=== PATIENT | male | born 1960 | race Caucasian/White ===

== ENCOUNTER 2017-07-26 10:21 | Inpatient (IN) | payer OTHER ==
[~2017-07-26] VITALS: Ht 175.3 cm; Wt 95.5 kg
[2017-07-26] MEDS ORDERED: TAMS0.4C32 PO (10:57)
[2017-07-26] MEDS ORDERED: ASPI-1182 PO (10:57)
[2017-07-26] MEDS ORDERED: ATOR40TA28 PO (10:57)
[2017-07-26] MEDS ORDERED: LURA40 PO (10:57)
[2017-07-26] MEDS ORDERED: OLAN10TA3 PO (10:57)
[2017-07-26] MEDS ORDERED: SERT100T12 PO (10:57)
[2017-07-26] MEDS ORDERED: TRAZ150 PO (10:57)
[2017-07-26] MEDS ORDERED: ATEN25TA PO (10:57)
[2017-07-26] MEDS ORDERED: VIST50 PO (10:57)
[2017-07-26] MEDS ORDERED: LISI-662 PO (10:57)
[2017-07-26] MEDS ORDERED: FINA5TAB41 PO (10:57)
[2017-07-26 11:31] LABS: BASOPHILS % (AUTO) 0.6 % (0.0-2.0); EOSINOPHILS % (AUTO) 0.3 % (1.0-6.0); HEMATOCRIT 40.2 % (41-53); HEMOGLOBIN 14.3 g/dL (13.5-17.5); LYMPHOCYTES # (AUTO) 1.4 K/uL (1.0-4.8); LYMPHOCYTES % (AUTO) 31.6 % (22.0-44.0); MEAN CORPUSCULAR HEMOGLOBIN 31.7 pg (26.0-34.0); MEAN CORPUSCULAR HGB CONC 35.6 G/dL (31.0-37.0); MEAN CORPUSCULAR VOLUME 89 fL (80-100); MONOCYTES # (AUTO) 0.3 K/uL (0.1-1.0); MONOCYTES % (AUTO) 7.4 % (2.0-9.0); NEUTROPHILS # (AUTO) 2.6 K/uL (1.8-7.7); NEUTROPHILS % (AUTO) 60.1 % (40.0-70.0); PLATELET COUNT (AUTO) 203 K/uL (150-450); RED BLOOD CELL COUNT(AUTO) 4.51 MIL/uL (4.50-5.90); RED CELL DISTRIBUTION WIDTH 12.1 % (11.5-14.5); WHITE BLOOD COUNT (AUTO) 4.4 K/uL (4.5-11.0)
[2017-07-26 11:41] LABS: ANION GAP 5 mmol/L (8-16); CALCIUM, TOTAL 8.8 mg/dL (8.8-10.5); CARBON DIOXIDE 31 mmol/L (22-29); CHLORIDE 102 mmol/L (98-107); CREATININE 0.91 mg/dL (0.60-1.30); GLOMERULAR FILTR. RATE CALC > 60 mL/min (>60); POTASSIUM 4.2 mmol/L (3.5-5.1); SODIUM SERUM 138 mmol/L (136-145); UREA NITROGEN, BLOOD 10 mg/dL (7-18)
[2017-07-26 11:45] LABS: INR 1.1 (0.9-1.1); PROTHROMBIN TIME 11.2 SEC (9.4-11.6)
[2017-07-26 11:59] LABS: B-TYPE NATRIURETIC PEPTIDE < 5 pg/mL (0-100)
[2017-07-26 12:06] LABS: ALANINE AMINOTRANSFERASE 41 U/L (12-78); ALBUMIN 3.8 g/dL (3.4-5.0); ASPARTATE AMINOTRANSFERASE 24 U/L (15-37); BILIRUBIN,TOTAL 0.4 mg/dL (0.1-1.0); CREATINE KINASE MB 2.2 ng/mL (0-5); CREATINE KINASE, TOTAL 139 U/L (39-308); TOTAL PROTEIN, SERUM 7.2 g/dL (6.4-8.2)
[2017-07-26] MEDS ORDERED: MORPHINE SULFATE 2 MG/ML SYRINGE IVP PRN (13:45)
[2017-07-26] MEDS ORDERED: ZOLPIDEM TARTRATE 10 MG TABLET PO PRN (13:45)
[2017-07-26] MEDS ORDERED: MAGNESIUM HYDROXIDE SUSPENSION 30 ML UDCUP PO PRN (13:45)
[2017-07-26] MEDS ORDERED: ONDANSETRON HCL 4 MG/2 ML VIAL IVP PRN (13:45)
[2017-07-26] MEDS ORDERED: HYDROCODONE/ACETAMINOPHEN 5-325 MG TABLET PO PRN (13:45)
[2017-07-26] MEDS ORDERED: IPRATROPIUM BROMIDE 0.5 MG/2.5 ML NEB SOLUTION NEB PRN (13:45)
[2017-07-26] MEDS ORDERED: ACETAMINOPHEN 325 MG TABLET PO PRN (13:45)
[2017-07-26] MEDS ORDERED: HydrOXYzine PAMOATE 50 MG CAPSULE PO PRN (14:00)
[2017-07-26 16:53] VITALS: BP 159/111
[2017-07-26 17:11] LABS: ADD UA MICROSCOPIC NO; APPEARANCE,URINE CLEAR (CLEAR); GLUCOSE, URINE (UA) NEGATIVE (NEGATIVE); KETONES,URINE NEGATIVE (NEGATIVE); LEUKOCYTE ESTERASE ,URINE NEGATIVE (NEGATIVE); OCCULT BLOOD,URINE NEGATIVE (NEGATIVE); PH,URINE 6.5 (5.0-8.0); PROTEIN,URINE NEGATIVE (NEGATIVE)
[2017-07-26] MEDS: NITROGLYCERIN 2% (1 GM=INCH) PACKET TP SCH (18:23)
[2017-07-26 18:40] VITALS: BP 130/91
[2017-07-26 19:34] VITALS: BP 117/66
[2017-07-26] MEDS: ATORVASTATIN CALCIUM 40 MG TABLET PO SCH (22:10)
[2017-07-26] MEDS: DOCUSATE SODIUM 100 MG CAPSULE PO SCH (22:10)
[2017-07-26] MEDS: TraZODone HCL 150 MG TABLET PO SCH (22:12)
[2017-07-26 23:57] VITALS: BP 112/64
[2017-07-27] VITALS (16 sets, daily range): BP systolic 105–139; BP diastolic 53–91
[2017-07-27] MEDS: NITROGLYCERIN 2% (1 GM=INCH) PACKET TP SCH ×4 (06:00→18:00)
[2017-07-27 06:29] LABS: CHOL/HDL RATIO 4.2 (4.2-7.3)
[2017-07-27] MEDS ORDERED: [UNRECOGNIZED DRUG - OTHER] PO SCH (08:00)
[2017-07-27] MEDS ORDERED: [UNRECOGNIZED DRUG - OTHER] PO SCH (08:00)
[2017-07-27] MEDS: LISINOPRIL 20 MG TABLET PO SCH (08:22)
[2017-07-27] MEDS: PANTOPRAZOLE SODIUM 40 MG/VIAL IVP SCH (08:22)
[2017-07-27] MEDS: ASPIRIN 81 MG CHEWABLE TABLET PO SCH (08:23)
[2017-07-27] MEDS: TAMSULOSIN HCL 0.4 MG CAPSULE PO SCH (08:23)
[2017-07-27] MEDS: FINASTERIDE 5 MG TABLET PO SCH (08:23)
[2017-07-27] MEDS: DOCUSATE SODIUM 100 MG CAPSULE PO SCH ×2 (08:24→20:54)
[2017-07-27] MEDS: SERTRALINE HCL 100 MG TABLET PO SCH (08:29)
[2017-07-27] MEDS: OLANZapine 10 MG TABLET PO SCH (08:29)
[2017-07-27] MEDS ORDERED: SODIUM CHLORIDE 0.9% 1,000 ML IV ONE (09:15)
[2017-07-27] MEDS ORDERED: SODIUM BICARBONATE 50 MEQ/50 ML VIAL ONE (11:56)
[2017-07-27] MEDS ORDERED: HEPARIN SODIUM 1000 UNITS/NS 1,000 ML ONE (11:56)
[2017-07-27] MEDS ORDERED: LIDOCAINE HCL/PF 1% 30 ML VIAL ONE (11:56)
[2017-07-27] MEDS ORDERED: IOHEXOL 300 MG/ML 150 ML VIAL ONE (11:56)
[2017-07-27] MEDS ORDERED: NITROGLYCERIN 50 MG/D5% WATER 250 ML ONE (12:31)
[2017-07-27] MEDS ORDERED: VERAPAMIL HCL 2.5 MG/ML 2 ML VIAL ONE (12:31)
[2017-07-27] MEDS ORDERED: MIDAZOLAM HCL 2 MG/2 ML VIAL ONE (12:45)
[2017-07-27] MEDS ORDERED: FentaNYL CITRATE-PF 100 MCG/2 ML VIAL ONE (12:45)
[2017-07-27] MEDS ORDERED: HEPARIN SODIUM 1000 UNITS/NS 1,000 ML IARTER ONE (12:50)
[2017-07-27] MEDS ORDERED: FentaNYL CITRATE-PF 100 MCG/2 ML VIAL IVP ONE (13:00)
[2017-07-27] MEDS ORDERED: IOHEXOL 300 MG/ML 150 ML VIAL IARTER ONE (13:00)
[2017-07-27] MEDS ORDERED: NITROGLYCERIN/D5W 50 MG/250 ML IV BOTTLE IARTER ONE (13:00)
[2017-07-27] MEDS ORDERED: HEPARIN SODIUM,PORCINE 5,000 UNITS/ML VIAL IVP ONE (13:00)
[2017-07-27] MEDS ORDERED: LIDOCAINE 1% 30 ML/SOD BICARB 8.4% 4 ML SQ ONE (13:00)
[2017-07-27] MEDS ORDERED: VERAPAMIL HCL 2.5 MG/ML 2 ML VIAL IARTER ONE (13:00)
[2017-07-27] MEDS ORDERED: MIDAZOLAM HCL 2 MG/2 ML VIAL IVP ONE (13:00)
[2017-07-27] MEDS: TraZODone HCL 150 MG TABLET PO SCH (20:51)
[2017-07-27] MEDS: ATORVASTATIN CALCIUM 40 MG TABLET PO SCH (20:54)
[2017-07-27] MEDS ORDERED: ATENOLOL 50 MG TABLET PO SCH (21:00)
[2017-07-28 04:23] VITALS: BP 112/74
[2017-07-28] MEDS: NITROGLYCERIN 2% (1 GM=INCH) PACKET TP SCH ×3 (05:44→12:00)
[2017-07-28 07:21] VITALS: BP 121/71
[2017-07-28 07:23] LABS: ANION GAP 6 mmol/L (8-16); CALCIUM, TOTAL 8.6 mg/dL (8.8-10.5); CARBON DIOXIDE 28 mmol/L (22-29); CHLORIDE 103 mmol/L (98-107); CREATININE 0.99 mg/dL (0.60-1.30); GLOMERULAR FILTR. RATE CALC > 60 mL/min (>60); POTASSIUM 4.2 mmol/L (3.5-5.1); SODIUM SERUM 137 mmol/L (136-145); UREA NITROGEN, BLOOD 10 mg/dL (7-18)
[2017-07-28] MEDS: DOCUSATE SODIUM 100 MG CAPSULE PO SCH (08:10)
[2017-07-28] MEDS: LISINOPRIL 20 MG TABLET PO SCH (08:10)
[2017-07-28] MEDS: TAMSULOSIN HCL 0.4 MG CAPSULE PO SCH (08:10)
[2017-07-28] MEDS: ASPIRIN 81 MG CHEWABLE TABLET PO SCH (08:11)
[2017-07-28] MEDS: FINASTERIDE 5 MG TABLET PO SCH (08:11)
[2017-07-28] MEDS: PANTOPRAZOLE SODIUM 40 MG/VIAL IVP SCH (08:12)
[2017-07-28] MEDS: SERTRALINE HCL 100 MG TABLET PO SCH (08:19)
[2017-07-28] MEDS: OLANZapine 10 MG TABLET PO SCH (08:19)
[2017-07-28] MEDS ORDERED: LURA120T PO (11:16)
== END 2017-07-28 13:25 | disposition home or self-care (01) | DRG 191 ==
LOC: EMS 10:24 → 5S 15:24
PROVIDERS: ADMIT Internal Medicine; ATTEND Internal Medicine
PROC: 4A023N7 Measurement of Cardiac Sampling and Pressure, Left Heart, Percutaneous Approach (ICD-10-PCS; principal; 2017-07-27)
PROC: B2111ZZ Fluoroscopy of Multiple Coronary Arteries using Low Osmolar Contrast (ICD-10-PCS; 2017-07-27)
PROC: B2151ZZ Fluoroscopy of Left Heart using Low Osmolar Contrast (ICD-10-PCS; 2017-07-27)
DX: I25.10 Atherosclerotic heart disease of native coronary artery without angina pectoris (principal); I10 Essential (primary) hypertension; E78.5 Hyperlipidemia, unspecified; E78.00 Pure hypercholesterolemia, unspecified; F41.9 Anxiety disorder, unspecified; N40.0 Benign prostatic hyperplasia without lower urinary tract symptoms; Z79.899 Other long term (current) drug therapy; Z79.82 Long term (current) use of aspirin; Z87.891 Personal history of nicotine dependence; Z82.49 Family history of ischemic heart disease and other diseases of the circulatory system
CPT/HCPCS: 93005; 93306; 99285; C9113; J1644; J2250; J3010; J3490; J7030; Q9967